=== PATIENT | female | born 1970 | race Hispanic/Latino ===

== ENCOUNTER 2020-11-01 04:16 | Emergency (ER) | payer BC, OTHER ==
[2020-11-01] MEDS ORDERED: DIAZEPAM 5 MG TABLET ONE (05:20)
[2020-11-01] MEDS ORDERED: METHYLPREDNISOLONE 125 MG INJ ONE (05:20)
[2020-11-01] MEDS ORDERED: MORPHINE 2 MG/ML SYR ONE (05:20)
[2020-11-01] MEDS ORDERED: MORPHINE 4 MG/ML SYR ONE (05:21)
[2020-11-01] MEDS ORDERED: ONDANSETRON 4 MG (ODT) TAB ONE (05:21)
--- NOTE | 2020-11-01 07:04 | ER ---
Nurse's Notes [facility] Name: Gema Gutierrez Age: 50 yrs Sex: Female : 1970 Arrival Date: 11/01/2020 Time: 04:16 Bed 15 Private MD: Diagnosis: Sciatica, right side Presentation: 11/01 04:32 Chief complaint: Patient states: pinched nerve for 1 day, pain starts in the right hip em and radiates down to to the right foot, reports right foot is numb, has received a steroid injection on October 08 to help, denies problems urinating. Coronavirus screen: Client denies travel out of the [place] in the last 14 days. Ebola Screen: Patient negative for fever greater than or equal to 101.5 degrees Fahrenheit, and additional compatible Ebola Virus Disease symptoms Patient denies exposure to infectious person. Patient denies travel to an Ebola-affected area in the 21 days before illness onset. No symptoms or risks identified at this time. Initial Sepsis Screen: Does the patient meet any 2 criteria? No. Patient's initial sepsis screen is negative. Does the patient have a suspected source of infection? No. Patient's initial sepsis screen is negative. Risk Assessment: Do you want to hurt yourself or someone else? Patient reports no desire to harm self or others. Onset of symptoms was November 01, 2020. 04:32 Method Of Arrival: Wheelchair em 04:32 Acuity: LISA 4 em Historical: - Allergies: 04:35 Iodine; em - PMHx: 04:35 Diabetes - NIDDM; Hypertension; Pancreatitis; em - PSHx: 04:35 Tubal ligation; Cholecystectomy; pancreatic patch post rupture, partial liver removal; em - Immunization history:: Adult Immunizations up to date. - Social history:: Smoking status: Patient denies any tobacco usage or history of. Patient/guardian denies using alcohol, street drugs, The patient lives with family. - Family history:: not pertinent. Screenin:45 Abuse screen: Denies threats or abuse. Nutritional screening: No deficits noted. jb4 Tuberculosis screening: No symptoms or risk factors identified. Fall Risk None identified. Assessment: 04:45 General: Appears in no apparent distress. comfortable, Behavior is calm, cooperative, jb4 appropriate for age. Pain: Complains of pain in right lower back Pain radiates to right leg Pain currently is 10 out of 10 on a pain scale. Neuro: Level of Consciousness is awake, alert, obeys commands, Oriented to person, place, time, situation. Cardiovascular: Patient's skin is warm and dry. Respiratory: Airway is patent Respiratory effort is even, unlabored. GI: No signs and/or symptoms were reported involving the gastrointestinal system. : No signs and/or symptoms were reported regarding the genitourinary system. EENT: No signs and/or symptoms were reported regarding the EENT system. Derm: Skin is intact, Skin is pink, warm \T\ dry. Musculoskeletal: Circulation, motion, and sensation intact. Range of motion: intact in all extremities. 06:00 Reassessment: Patient appears in no apparent distress at this time. Patient and/or jb4 family updated on plan of care and expected duration. Pain level reassessed. Patient is alert, oriented x 3, equal unlabored respirations, skin warm/dry/pink. Patient states feeling better. Patient states symptoms have improved. 07:00 Reassessment: Patient appears in no apparent distress at this time. Patient and/or jb4 family updated on plan of care and expected duration. Pain level reassessed. Patient is alert/active/playful, equal unlabored respirations, skin warm/dry/pink. Vital Signs: 04:32 BP 131 / 72; Pulse 76; Resp 18; Temp 97.5(O); Pulse Ox 100% on R/A; Weight 70.76 kg; em Height 5 ft. 4 in. (162.56 cm); Pain 10/10; 06:00 BP 137 / 79; Pulse 69; Resp 16; Pulse Ox 100% on R/A; jb4 07:00 BP 126 / 78; Pulse 63; Resp 16; Pulse Ox 99% on R/A; jb4 04:32 Body Mass Index 26.78 (70.76 kg, 162.56 cm) em ED Course: 04:16 Patient arrived in ED. bp1 04:24 Ru Ramires MD is Attending Physician. ma2 04:34 Triage completed. em 04:35 Arm band placed on. em 04:45 Patient has correct armband on for positive identification. Bed in low position. Call jb4 light in reach. Side rails up X 1. Pulse ox on. NIBP on. 04:55 Uvaldo Frazier, RN is Primary Nurse. jb4 06:01 Lumbar Spine (1 view) XRAY In Process Unspecified. EDMS 06:01 Hip Right 2 View XRAY In Process Unspecified. EDMS 07:15 No provider procedures requiring assistance completed. Patient did not have IV access jb4 during this emergency room visit. Administered Medications: 05:15 Drug: Valium (diazepam) 5 mg Route: PO; jb4 06:00 Follow up: Response: No adverse reaction jb4 05:15 Drug: morphine 10 mg Route: IM; Site: left deltoid; jb4 07:04 Follow up: Response: No adverse reaction; Marked relief of symptoms; Pain is decreased; jb4 RASS: Alert and Calm (0) 05:15 Drug: Zofran (Ondansetron) 4 mg Route: PO; jb4 06:00 Follow up: Response: No adverse reaction jb4 05:15 Drug: MethylPREDNISolone Sodium Succinate 125 mg Route: IM; Site: left gluteus; jb4 06:00 Follow up: Response: No adverse reaction; Marked relief of symptoms; RASS: Alert and jb4 Calm (0) Outcome: 07:03 Discharge ordered by . jonathan 07:15 Discharged to home via wheelchair, with family. jb4 07:15 Condition: stable 07:15 Discharge instructions given to patient, family, Instructed on discharge instructions, follow up and referral plans. medication usage, Demonstrated understanding of instructions, follow-up care, medications, Prescriptions given X 3. 07:26 Patient left the ED. jb4 Signatures: Dispatcher [employer] Ke Torrez RN RN Uvaldo Frazier, RN RN jbRu Pelaez MD MD ma2 [place], [facility]
--- NOTE | 2020-11-01 07:04 | EDPHYS ---
Physician Documentation [facility] Name: Gema Gutierrez Age: 50 yrs Sex: Female : 1970 Arrival Date: 11/01/2020 Time: 04:16 Bed 15 Private MD: ED Physician Ru Ramires HPI: 11/01 05:03 This 50 yrs old Female presents to ER via Wheelchair with complaints of ma2 Pinched nerve. 05:03 The patient or guardian reports pain. Onset: The symptoms/episode began/occurred ma2 gradually, 2 day(s) ago. Severity of symptoms: At their worst the symptoms were moderate, in the emergency department the symptoms are unchanged. The patient has experienced similar episodes in the past, hx of sciatica and get steroids injections frequently . Historical: - Allergies: 04:35 Iodine; em - PMHx: 04:35 Diabetes - NIDDM; Hypertension; Pancreatitis; em - PSHx: 04:35 Tubal ligation; Cholecystectomy; pancreatic patch post rupture, partial liver removal; em - Immunization history:: Adult Immunizations up to date. - Social history:: Smoking status: Patient denies any tobacco usage or history of. Patient/guardian denies using alcohol, street drugs, The patient lives with family. - Family history:: not pertinent. ROS: 05:03 Constitutional: Negative for fever, chills, and weight loss. ma2 05:03 All other systems are negative. Exam: 05:03 Constitutional: This is a well developed, well nourished patient who is awake, alert, ma2 and in no acute distress. Chest/axilla: Normal chest wall appearance and motion. Nontender with no deformity. No lesions are appreciated. Cardiovascular: Regular rate and rhythm with a normal S1 and S2. No gallops, murmurs, or rubs. Normal PMI, no JVD. No pulse deficits. Respiratory: Lungs have equal breath sounds bilaterally, clear to auscultation and percussion. No rales, rhonchi or wheezes noted. No increased work of breathing, no retractions or nasal flaring. Abdomen/GI: Soft, non-tender, with normal bowel sounds. No distension or tympany. No guarding or rebound. No evidence of tenderness throughout. Back: No spinal tenderness. No costovertebral tenderness. Full range of motion. Skin: Warm, dry with normal turgor. Normal color with no rashes, no lesions, and no evidence of cellulitis. MS/ Extremity: pain in posterior right hip over sciatic nerve, otherwise Pulses equal, no cyanosis. Neurovascular intact. Full, normal range of motion. Neuro: Awake and alert, GCS 15, oriented to person, place, time, and situation. Cranial nerves II-XII grossly intact. Motor strength 5/5 in all extremities. Sensory grossly intact. Cerebellar exam normal. Normal gait. Vital Signs: 04:32 BP 131 / 72; Pulse 76; Resp 18; Temp 97.5(O); Pulse Ox 100% on R/A; Weight 70.76 kg; em Height 5 ft. 4 in. (162.56 cm); Pain 10/10; 06:00 BP 137 / 79; Pulse 69; Resp 16; Pulse Ox 100% on R/A; jb4 07:00 BP 126 / 78; Pulse 63; Resp 16; Pulse Ox 99% on R/A; jb4 04:32 Body Mass Index 26.78 (70.76 kg, 162.56 cm) em MDM: 04:24 Patient medically screened. [facility] 05:03 Differential diagnosis: hip fracture, femoral shaft fracture, bursitis, arthritis, ma2 strain, sciatica. 07:03 Data reviewed: vital signs, nurses notes. Counseling: I had a detailed discussion with maIsaac the patient and/or guardian regarding: the historical points, exam findings, and any diagnostic results supporting the discharge/admit diagnosis, the presence of at least one elevated blood pressure reading (>120/80) during this emergency department visit, the need for outpatient follow up. Response to treatment: the patient's symptoms have markedly improved after treatment. 11/01 04:49 Order name: Lumbar Spine (1 view) XRAY ma2 11/01 04:49 Order name: Hip Right 2 View XRAY ma2 Administered Medications: 05:15 Drug: Valium (diazepam) 5 mg Route: PO; jb4 06:00 Follow up: Response: No adverse reaction jb4 05:15 Drug: morphine 10 mg Route: IM; Site: left deltoid; jb4 07:04 Follow up: Response: No adverse reaction; Marked relief of symptoms; Pain is decreased; jb4 RASS: Alert and Calm (0) 05:15 Drug: Zofran (Ondansetron) 4 mg Route: PO; jb4 06:00 Follow up: Response: No adverse reaction jb4 05:15 Drug: MethylPREDNISolone Sodium Succinate 125 mg Route: IM; Site: left gluteus; jb4 06:00 Follow up: Response: No adverse reaction; Marked relief of symptoms; RASS: Alert and jb4 Calm (0) Disposition: 11/01/20 07:03 Discharged to Home. Impression: Sciatica, right side. - Condition is Stable. - Discharge Instructions: Sciatica, Sciatica, [id number], Back Exercises, [id number]. - Prescriptions for Cyclobenzaprine 10 mg Oral Tablet - take 1 tablet by ORAL route every 8 hours As needed; 30 tablet. Medrol (Mehran) 4 mg Oral Tablets, Dose Pack - take 1 tablet by ORAL route as directed - follow package instructions; 1 packet. Diclofenac Sodium 75 mg Oral Tablet Sustained Release - take 1 tablet by ORAL route 2 times per day; 30 tablet. - Medication Reconciliation Form, Thank You Letter, Antibiotic Education, Prescription Opioid Use form. - Follow up: Private Physician; When: Tomorrow; Reason: Continuance of care. Signatures: Dispatcher [employer] Ke Torrez RN RN Uvaldo Foster RN RN jb4 Ru Ramires MD MD ma2 Corrections: (The following items were deleted from the chart) 07:26 07:03 11/01/2020 07:03 Discharged to Home. Impression: Sciatica, right side. Condition jb4 is Stable. Discharge Instructions: Sciatica, Sciatica, [id number], Back Exercises, [id number]. Prescriptions for Cyclobenzaprine 10 mg Oral Tablet - take 1 tablet by ORAL route every 8 hours As needed; 30 tablet, Medrol (Mehran) 4 mg Oral Tablets, Dose Pack - take 1 tablet by ORAL route as directed - follow package instructions; 1 packet, Diclofenac Sodium 75 mg Oral Tablet Sustained Release - take 1 tablet by ORAL route 2 times per day; 30 tablet. and Forms are Medication Reconciliation Form, Thank You Letter, Antibiotic Education, Prescription Opioid Use. Follow up: Private Physician; When: Tomorrow; Reason: Continuance of care. ma2
--- NOTE | 2020-11-01 09:03 | RAD REPORT ---
EXAM DESCRIPTION: RAD - Hip Right 2 View - 11/01/2020 6:01 am CLINICAL HISTORY: Pain;Numbness/tingling COMPARISON: No comparisons FINDINGS: AP and frog-leg views of the right hip were obtained. There is no fracture or dislocation. No AVN or focal head abnormality. Degenerative changes along the superior acetabulum are present and mild. IMPRESSION: Negative right hip examination for acute or significant findings.
--- NOTE | 2020-11-01 10:11 | RAD REPORT ---
EXAM DESCRIPTION: RAD - Lumbar Spine - Single View - 11/01/2020 6:01 am CLINICAL HISTORY: LOWER BACK PAIN COMPARISON: Lumbar Spine Wo Con dated 01/12/2018 FINDINGS: Single AP view of the lumbar spine obtained. Lumbar bodies are normal in height. No latera l subluxation or scoliotic alignment abnormalities. No lytic, sclerotic or expansile bony destructive changes. Patient does have L5-S1 facet joint degenerative change worse on the right. SI joint degene rative changes minimal. Bilateral hip joint degenerative change mild in severity. IMPRESSION: Facet joint degenerative change at the lumbosacral junction. No acute lumbar finding on this single view examination.
[2020-11-01 12:58] VITALS: TEMP 97.5
[2020-11-01 13:01] VITALS: BP 126/78; O2SAT 99
== END 2020-11-01 07:26 | disposition home or self-care (01) ==
LOC: ER 04:16
DX: M54.31 Sciatica, right side (principal); I10 Essential (primary) hypertension; Z91.048 Other nonmedicinal substance allergy status
CPT/HCPCS: 72020; 73502; 96372; 99284; J2270; J2930